=== PATIENT | female | born 1975 | race Caucasian/White ===

== ENCOUNTER 2018-02-23 13:24 | Inpatient (IN) | payer MEDICAID ==
[~2018-02-23] VITALS: Ht 154.9 cm; Wt 81.6 kg
--- NOTE | 2018-02-23 13:30 | NUR ---
Patient ambulated with assistance to bed 8.
[2018-02-23 13:35] VITALS: BP 144/84
[2018-02-23] MEDS ORDERED: NACL 0.9% 1,000 ML IV ONE (13:40)
[2018-02-23] MEDS ORDERED: MORPHINE SULFATE 4 MG/ML SYR IVP ONE (13:40)
[2018-02-23] MEDS ORDERED: METOCLOPRAMIDE 10 MG/2 ML INJ VIAL IVP ONE (13:45)
[2018-02-23] MEDS ORDERED: HYDROmorphone PFS 2 MG/ML SYR IVP ONE (13:55)
[2018-02-23 14:06] LABS: BASOPHILS % (AUTO) 0.5 % (0.0-2.0); EOSINOPHILS # (AUTO) 0.1 K/uL (0-0.4); HEMOGLOBIN 14.3 g/dL (12.0-16.0); LYMPHOCYTES # (AUTO) 2.5 K/uL (2.5-16.5); LYMPHOCYTES % (AUTO) 27.9 % (20.5-51.1); MEAN CORPUSCULAR HEMOGLOBIN 29 pg (27-31); MEAN CORPUSCULAR HGB CONC 33 g/dL (33-37); MEAN CORPUSCULAR VOLUME 87.2 fL (80-94); MONOCYTES # (AUTO) 0.5 K/uL (0.8-1.0); MONOCYTES % (AUTO) 6.1 % (1.7-9.3); NEUTROPHILS # (AUTO) 5.7 K/uL (1.8-7.7); NEUTROPHILS % (AUTO) 64.5 % (42.2-75.2); PLATELET COUNT (AUTO) 320 K/uL (140-450); RED BLOOD CELL COUNT(AUTO) 4.92 MIL/uL (4.20-5.40); RED CELL DISTRIBUTION WIDTH 13.3 % (11.6-13.7); WHITE BLOOD COUNT (AUTO) 8.9 K/uL (4.8-10.8)
--- NOTE | 2018-02-23 14:10 | NUR ---
PATIENT PRESENTS TO ED WITH THE CHIEF C/O ABDOMINAL PAIN . PT STATES PAIN STARTED SINCE YESTERDAY BECAME WORSE . PT HAS N/V. DENIES DIARRHEA. SKIN IS PINK/WARM/DRY; AAOX4 WITH EVEN AND STEADY GAIT. HR EVEN AND REGULAR; PT DENIES ANY FEVER, CP, SOB, OR COUGH AT THIS TIME. PATIENT STATES ABD PAIN OF 10/10 AT THIS TIME. ADMINISTERED MEDICATION ORDERED. VSS WNL. PATIENT POSITIONED FOR COMFORT; HOB ELEVATED; BEDRAILS UP X2; BED DOWN. ER MD MADE AWARE OF PT STATUS.
--- NOTE | 2018-02-23 14:14 | NUR ---
US TECH AT BEDSIDE.
[2018-02-23 14:18] LABS: ANION GAP 13.3 (8-16); CARBON DIOXIDE 25.1 mmol/L (21-32); CREATININE 0.9 mg/dL (0.6-1.3); POTASSIUM 3.4 mmol/L (3.5-5.1)
[2018-02-23 14:24] LABS: ALBUMIN 3.6 g/dL (3.4-5.0); TOTAL BILIRUBIN 0.3 mg/dL (0.0-1.0)
[2018-02-23 15:22] LABS: APPEARANCE,URINE SLIGHTLY HAZY (CLEAR); BILIRUBIN,URINE NEGATIVE (NEGATIVE); BLOOD, URINE 3+ (NEGATIVE); COLOR,URINE YELLOW (YELLOW); LEUKOCYTE ESTERASE ,URINE NEGATIVE (NEGATIVE); NITRITE, URINE NEGATIVE (NEGATIVE); PH,URINE 5.5 (5.0-9.0); UGLUCOSE NEGATIVE (NEGATIVE)
[2018-02-23 15:31] LABS: RBC,URINE 11-20 (MOD) /HPF (0-5); WBC,URINE 0-5 (RARE) /HPF (0-5)
--- NOTE | 2018-02-23 16:51 | NUR ---
PT APPEARS TO BE RESTING COMFORTABLY IN BED AT THIS TIME. NO ACUTE DISTRESS NOTED. NO CHANGE IN LOC. DENIES PAIN. AT BEDSIDE.
--- NOTE | 2018-02-23 16:58 | NUR ---
DR. COLLADO AT BEDSIDE EVALUATING PT.
[2018-02-23] MEDS ORDERED: PIPERACILLIN/TAZOBACTAM 3.375 GM in DEXTROSE 5% 50 ML IV ONE (17:20)
[2018-02-23] MEDS ORDERED: NACL 0.9% 1,000 ML IV SCH (17:34)
[2018-02-23] MEDS ORDERED: ONDANSETRON 4 MG/2 ML VIAL IVP PRN (17:35)
[2018-02-23] MEDS ORDERED: ACETAMINOPHEN 325 MG TAB PO PRN (17:35)
[2018-02-23] MEDS ORDERED: PIPERACILLIN/TAZOBACTAM 3.375 GM VIAL IV ONE (17:43)
[2018-02-23] MEDS ORDERED: KETOROLAC 30 MG/ML VIAL IVP ONE (18:15)
[2018-02-23] MEDS ORDERED: KETOROLAC 30 MG/ML VIAL ONE (18:20)
[2018-02-23 18:45] LABS: PROTHROMBIN TIME 10.6 secs (10.8-13.4)
[2018-02-23 18:50] VITALS: BP 115/50
--- NOTE | 2018-02-23 18:50 | NUR ---
PT BROUGHT IN FROM ER IN [facility], AMBULATES FROM HALLWAY TO 104B WITH STEADY GAIT, PT PLACED ON DIETITIAN CHIEF, REPORT RECIVED FROM [facility]IAL [facility], PT AWAKE ALERT, RESP EVEN UNLABORED, SKIN WARM DRY COLOR WNL, PT DENIES PAIN OR DISCOMFORT AT THIS TIME, PT APPEARS COMFORTABLE, ABD SOFT, PT ORIENTED TO ROOM AND FLOOR, CALL CAMERON WITHIN REACH SIDE RAILS UP, BED LOCKED IN LOW POSITION, WILL CONTINUE TO MONITOR AND REPORT TO ONCOMING SHIFT.
--- NOTE | 2018-02-23 18:52 | NUR ---
PT TRANSFERRED TO TELE ROOM 104B AT 1840 ON STABLE CONDITION SAFELY. VS WNL. REPORT GIVEN TO TELE NURSE FOR CONTINUITY OF CARE. HANDED ALL THE DOCUMENTS TO NURSE.
[2018-02-23 19:04] LABS: CHOL/HDL RATIO 7.3 (1-4.5); FREE T4 (FREE THYROXINE) 1.14 ng/dL (0.76-1.46); PHOSPHORUS 2.8 mg/dL (2.5-4.9); THYROID STIMULATING HORMONE 2.43 uIU/mL (0.34-3.74)
[2018-02-23 19:17] LABS: BARBITURATE, URINE NEG. ng/ml (NEG <=200); BENZODIAZEPINE, URINE NEG. ng/mL (NEG <=200); CANNABINOID, URINE NEG. ng/mL (NEG <=50); COCAINE, URINE NEG. ng/mL (NEG <=300); OPIATE, URINE POS. ng/mL (NEG <=2000); PHENCYCLIDINE SCREEN,URINE NEG. ng/mL (NEG <=25)
--- NOTE | 2018-02-23 19:25 | NUR ---
RECEIVED REPORT AT PT BEDSIDE FROM DAY SHIFT RN, FOR CONTINUITY OF CARE. PATIENT IS A/OX4 ON ROOM AIR, KYRGY[place] SPEAKING ONLY. ABLE TO MAKE NEEDS KNOWN, ABLE TO FOLLOW COMMANDS. PT SKIN IS INTACT. PT IS NPO. PATIENT HAS 20G IV TO RIGHT AC, ASYMPTOMATIC, INTACT, PATENT. RESPIRATIONS EVEN AND UNLABORED. UPDATED BOARD. VITAL SIGNS WITHIN NORMAL LIMITS. PT STABLE, NO SIGNS OF DISTRESS NOTED AT THIS TIME. BED IN LOWEST POSITION, BED ALARM ON. CALL LIGHT WITHIN REACH, WILL CONTINUE TO MONITOR.
[2018-02-23 20:00] VITALS: BP 143/47
[2018-02-23] MEDS: DOCUSATE SODIUM 100 MG GELCAP PO SCH (20:48)
--- NOTE | 2018-02-23 20:50 | NUR ---
ADMINISTERED SCHEDULED MEDICATION, PT TOLERATED WELL. NO PROBLEMS SWALLOWING NOTED. NO SIGNS OF DISTRESS NOTED AT THIS TIME. BED IN LOWEST POSITION, BED ALARM ON. CALL LIGHT WITHIN REACH, WILL CONTINUE TO MONITOR.
--- NOTE | 2018-02-23 21:55 | NUR ---
SPOKE TO RADIOLOGY ABOUT HIDA SCAN BECAUSE PT IS IN PAIN AND WANTS PAIN MEDICATION. THEY WILL NOT BE ABLE TO DO HIDA SCAN TONIGHT SO IT'S OK TO GIVE NARCOTICS FOR NOW. WILL BE UPDATED IN MORNING OF TIME THEY WILL DO HIDA SCAN.
[2018-02-23] MEDS: HYDROcodone/APAP 7.5/325 MG 1 TAB PO PRN (22:18)
--- NOTE | 2018-02-23 22:18 | NUR ---
ADMINISTERED PAIN MEDICATION, PT TOLERATED WELL. PT STABLE, NO SIGNS OF DISTRESS NOTED AT THIS TIME. BED IN LOWEST POSITION, BED ALARM ON. CALL LIGHT WITHIN REACH, WILL CONTINUE TO MONITOR.
[2018-02-24] VITALS: BP 107/56
--- NOTE | 2018-02-24 | NUR ---
VITAL SIGNS WITHIN NORMAL LIMITS. PT STABLE, NO SIGNS OF DISTRESS NOTED AT THIS TIME. BED IN LOWEST POSITION, BED ALARM ON. CALL LIGHT WITHIN REACH, WILL CONTINUE TO MONITOR.
[2018-02-24 04:00] VITALS: BP 113/67
--- NOTE | 2018-02-24 04:00 | NUR ---
PT DENIES PAIN. VITAL SIGNS WITHIN NORMAL LIMITS. PT STABLE, NO SIGNS OF DISTRESS NOTED AT THIS TIME. BED IN LOWEST POSITION, BED ALARM ON. CALL LIGHT WITHIN REACH, WILL CONTINUE TO MONITOR.
[2018-02-24 07:16] LABS: BASOPHILS % (AUTO) 0.4 % (0.0-2.0); EOSINOPHILS # (AUTO) 0.1 K/uL (0-0.4); EOSINOPHILS % (AUTO) 0.8 % (0.0-4.0); HEMATOCRIT 39.2 % (36-48); HEMOGLOBIN 12.9 g/dL (12.0-16.0); LYMPHOCYTES # (AUTO) 1.8 K/uL (2.5-16.5); LYMPHOCYTES % (AUTO) 22.6 % (20.5-51.1); MEAN CORPUSCULAR HEMOGLOBIN 29 pg (27-31); MEAN CORPUSCULAR HGB CONC 33 g/dL (33-37); MONOCYTES # (AUTO) 0.4 K/uL (0.8-1.0); MONOCYTES % (AUTO) 5.6 % (1.7-9.3); NEUTROPHILS # (AUTO) 5.6 K/uL (1.8-7.7); NEUTROPHILS % (AUTO) 70.6 % (42.2-75.2); PLATELET COUNT (AUTO) 294 K/uL (140-450); RED BLOOD CELL COUNT(AUTO) 4.46 MIL/uL (4.20-5.40); RED CELL DISTRIBUTION WIDTH 13.3 % (11.6-13.7); WHITE BLOOD COUNT (AUTO) 7.9 K/uL (4.8-10.8)
--- NOTE | 2018-02-24 07:37 | NUR ---
ENDORSED PT TO DAY SHIFT RN FOR CONTINUITY OF CARE, PT IN STABLE CONDITION.
--- NOTE | 2018-02-24 07:40 | NUR ---
RECEIVED PT FROM ALUM PLANT SUPERVISOR NURSE, AWAKE WITH ON THE BEDSIDE, WITH AN IV LINE AT RT AC G.20, NS RUNNING AT 50ML/HR. PLAN OF CARE DISCUSSED. PT IS ALERT, ORIENTEDX4, NO PAIN THIS TIME.CALL LIGHT WITHIN REACH AND SIDE RAILS ARE UP. WILL CONTINUE TO MONITOR.
--- NOTE | 2018-02-24 07:45 | NUR ---
PT IS AWAKE AND VITAL SIGNS TAKEN AND IS STABLE. NO SIGN OF DISTRESS NOTED. CALL LIGHT WITHIN REACH AND WILL CONTINUE TO MONITOR.
[2018-02-24 07:58] LABS: ANION GAP 18.2 (8-16); CARBON DIOXIDE 25.7 mmol/L (21-32); CREATININE 0.7 mg/dL (0.6-1.3); POTASSIUM 3.9 mmol/L (3.5-5.1)
[2018-02-24 08:00] VITALS: BP 113/52
[2018-02-24 08:31] LABS: MAGNESIUM 2.2 mg/dL (1.8-2.4); PHOSPHORUS 2.8 mg/dL (2.5-4.9)
--- NOTE | 2018-02-24 10:24 | NUR ---
PATIENT HAS BEEN SCREENED AND CATEGORIZED MODERATE NUTRITION RISK. PATIENT WILL BE SEEN WITHIN 3-5 DAYS OF ADMISSION. 02/26/18 02/28/[address]
[2018-02-24] MEDS: DEXT 5% /NACL 0.9% 1,000 ML IV SCH ×2 (10:30→18:22)
--- NOTE | 2018-02-24 10:30 | NUR ---
PT IS AWAKE AND NS WAS DISCONTINUED. PT WAS STARTED ON IV FLUID OF DEXTROSE 5%- NACL 0.9% RUNNING AT 90ML/HR. MEDICATIONS GIVEN AND PT TOLERATED IT. NMO SIGN OF DISTRESS NOTED. WILL CONTINUE TO MONITOR.
[2018-02-24] MEDS: DOCUSATE SODIUM 100 MG GELCAP PO SCH ×2 (10:53→21:01)
[2018-02-24] MEDS: PANTOPRAZOLE 40 MG INJ VIAL IVP SCH (10:53)
[2018-02-24 12:00] VITALS: BP 114/63
--- NOTE | 2018-02-24 12:17 | NUR ---
ASSISTED PT TO THE BATHROOM AND BACK TO BED, IV WAS CHECKED. NO SIGN OF DISTRESS NOTED. CALL LIGHT WITHIN REACH AND WILL CONTINUE TO MONITOR.
--- NOTE | 2018-02-24 14:00 | NUR ---
PT WENT FOR A HIDRA SCAN AND CT OF THE CHEST WITH IV CONTRAST. NO SIGN OF DISTRESS NOTED. PT IS STABLE.
[2018-02-24 16:00] VITALS: BP 126/68
--- NOTE | 2018-02-24 16:20 | NUR ---
PT CAME BACK TO THE ROOM FROM THE RADIOLOGY FROM THE CT AND HIDRA SCAN PRECEDURES. NO SIGN OF DISTRESS NOTED. WILL MONITOR.
--- NOTE | 2018-02-24 19:30 | NUR ---
ENDORSED PT TO NEWSWRITER FOR CONTINUITY OF CARE. PT IS STABLE WITH ON THE BEDSIDE.
--- NOTE | 2018-02-24 19:31 | NUR ---
REPORT RECEIVED FROM AM NURSE. PT IN STABLE CONDITION. INTRODUCED MYSELF TO PT. AAOX4. EYES PERRL 3MM. LUNGS CLEAR BILATERALLY. HEART SOUNDS S1 S2 NORMAL. BOWEL SOUNDS ACTIVE X4 QUADRANTS. CAP REFILL < 3S. SKIN INTACT, DRY, AND WARM. IV LEAKING. WILL PLACE NEW IV. VS STABLE. PT NOT IN ACUTE DISTRESS. BED LOCKED IN LOW POSITION. CALL CAMERON WITHIN REACH. WILL CONTINUE TO MONITOR.
[2018-02-24 20:00] VITALS: BP 138/79
--- NOTE | 2018-02-24 20:40 | NUR ---
PM MEDS GIVEN. PT TOLERATED WELL. WILL CONTINUE TO MONITOR.
--- NOTE | 2018-02-24 22:26 | NUR ---
CALLED DR NAVARRO WITH RESULTS OF NM HIDA SCAN. RESULTS ARE "THE COMMON BILE DUCT IS VISUALIZED. THERE IS NO EVIDENCE OF OBSTRUCTION OF THE COMMON DUCT. NORMAL SMALL BOWEL ACTIVITY IS SEEN." "IMPRESSION: NONVISUALIZATION OF THE GALLBLADDER UP TO 60 MINUTES POST INJECTION. HOWEVER, THERE IS FAINT RADIONUCLIDE ACTIVITY IN THE ANTICIPATED LOCATION OF THE GALLBLADDER AT 120 MINUTES POST INJECTION SUGGESTING CHRONIC CHOLECYSTITIS." DR NAVARRO STATES THAT PATIENT DOES NOT NEED TO BE NPO. THE PT IS TO BE DC AND MAKE AN APPOINTMENT TO BE SEEN BY DR NAVARRO AT A LATER DATE.
[2018-02-25] VITALS: BP 121/68
--- NOTE | 2018-02-25 01:00 | NUR ---
PT ASLEEP IN BED. VISUALIZATION OF CHEST EXPANSION. WILL CONTINUE TO MONITOR.
--- NOTE | 2018-02-25 03:00 | NUR ---
PT STILL ASLEEP IN BED. PT NOT IN ANY ACUTE DISTRESS. WILL CONTINUE TO MONITOR.
[2018-02-25 04:00] VITALS: BP 132/70
[2018-02-25] MEDS: DEXT 5% /NACL 0.9% 1,000 ML IV SCH ×2 (05:29→20:48)
--- NOTE | 2018-02-25 05:30 | NUR ---
PT ASLEEP BUT AROUSABLE. NOT IN ANY ACUTE DISTRESS. WILL CONTINUE TO MONITOR.
[2018-02-25 06:34] LABS: BASOPHILS % (AUTO) 0.4 % (0.0-2.0); EOSINOPHILS # (AUTO) 0.1 K/uL (0-0.4); EOSINOPHILS % (AUTO) 1.1 % (0.0-4.0); HEMATOCRIT 41.4 % (36-48); HEMOGLOBIN 13.7 g/dL (12.0-16.0); LYMPHOCYTES # (AUTO) 1.6 K/uL (2.5-16.5); LYMPHOCYTES % (AUTO) 22.3 % (20.5-51.1); MEAN CORPUSCULAR HEMOGLOBIN 29 pg (27-31); MEAN CORPUSCULAR HGB CONC 33 g/dL (33-37); MONOCYTES # (AUTO) 0.4 K/uL (0.8-1.0); MONOCYTES % (AUTO) 5.8 % (1.7-9.3); NEUTROPHILS % (AUTO) 70.4 % (42.2-75.2); PLATELET COUNT (AUTO) 302 K/uL (140-450); RED CELL DISTRIBUTION WIDTH 13.2 % (11.6-13.7); WHITE BLOOD COUNT (AUTO) 7.1 K/uL (4.8-10.8)
[2018-02-25 06:43] LABS: ANION GAP 9.5 (8-16); CARBON DIOXIDE 27.3 mmol/L (21-32); CREATININE 0.8 mg/dL (0.6-1.3); POTASSIUM 3.8 mmol/L (3.5-5.1)
[2018-02-25 06:51] LABS: PHOSPHORUS 2.6 mg/dL (2.5-4.9)
--- NOTE | 2018-02-25 07:09 | NUR ---
REPORT GIVEN TO AM NURSE. PT IN STABLE CONDITION.
--- NOTE | 2018-02-25 07:10 | NUR ---
RECEIVED REPORT FROM LAMP DECORATOR NURSE, AMEYA, PT IS ASLEEP LYING ON THE BED WITH AN IV LINE ON RT AC G. 20, NOT HOOKED UP WITH THE IVF OF DEXTROSE5%-NACL 0.9%. SIDE RAILS ARE UP AND CALL LIGHT WITHIN REACH, RESPIRATION EVEN AND NO SIGN OF DISTRESS NOTED. WILL CONTINUE TO MONITOR.
[2018-02-25 07:12] LABS: MAGNESIUM 2.4 mg/dL (1.8-2.4)
--- NOTE | 2018-02-25 07:38 | NUR ---
PT IS AWAKE AND LYING ON THE BED, CARE PLAN DISCUSSED AND PT VERBALIZED UNDERSTANDING. VITAL SIGNS TAKEN AND IS STABLE. WILL CONTINUE TO MONITOR.
[2018-02-25 08:00] VITALS: BP 119/55
[2018-02-25] MEDS: ATORVASTATIN 20 MG TAB PO SCH (10:15)
[2018-02-25] MEDS: DOCUSATE SODIUM 100 MG GELCAP PO SCH ×2 (10:15→20:49)
[2018-02-25] MEDS: PANTOPRAZOLE 40 MG INJ VIAL IVP SCH (10:15)
[2018-02-25] MEDS: HYDROcodone/APAP 7.5/325 MG 1 TAB PO PRN (10:15)
[2018-02-25 12:00] VITALS: BP 126/56
--- NOTE | 2018-02-25 13:04 | NUR ---
ACKNOWLEDGED A BONE SCAN ORDER FROM DR. MCGINNIS FOR THE PT.
[2018-02-25 16:00] VITALS: BP 120/60
--- NOTE | 2018-02-25 16:20 | NUR ---
PT IS AWAKE WITH ON THE BEDSIDE, VITAL SIGNS TAKEN AND IS STABLE. NO SIGN OFF DISTRESS NOTED ON THE PT. WILL MONITOR.
--- NOTE | 2018-02-25 17:17 | NUR ---
ACKNOWLEDGED AN ORDER FOR THE PT ELIA OBTAIN CONSENT FOR A LAPAROSCOPIC CHOLECYSTECTOMY ELIA WITH DR. BEBO WOLFE. WILL FACILITATE CONSENT SIGNING.
--- NOTE | 2018-02-25 19:35 | NUR ---
ENDORSED PT TO TUMBLER DYEING MACHINE OPERATOR NURSE, ROBERT FOR CONTINUITY OF CARE, PT IS AWAKE AND SEATED ON THE BED WITH FAMILY ON BEDSIDE AND IS STABLE AT THIS TIME.
--- NOTE | 2018-02-25 19:37 | NUR ---
RECEIVED PT IN STABLE CONDITION FROM AM NURSE. PT ON MED SURG UNIT. AWAKE, ALERT AND ORIENTED X4, SOUTH AFRICAN SPEAKING. WITH FAMILY AT BEDSIDE WHO SPEAK SWEDISH. PT AWARE OF THE SURGERY TO BE DONE TOMORROW. INSTRUCTED PT ABOUT NPO STATUS AFTER MN. VERBALIZED UNDERSTANDING. BED ON LOWEST POSITION. CALL LIGHT PLACED WITHIN EASY REACH. WILL CONTINUE TO MONITOR.
--- NOTE | 2018-02-25 21:50 | NUR ---
AWAKE, STILL WITH FAMILY AT BEDSIDE. NO C/O ANY PAIN NOTED. WILL CONITNUE TO MONITOR.
[2018-02-25 23:30] VITALS: BP 124/63
--- NOTE | 2018-02-25 23:30 | NUR ---
PT AWAKE. NO C/O ANY DISCOMFORT NOR PAIN NOTED. INSTRUCTED AGAIN ABOUT NPO STATUS AFTER MN. VERBALIZED UNDERSTANDING . WILL CONTINUE TO MONITOR.
[2018-02-26] VITALS (8 sets, daily range): BP systolic 114–126; BP diastolic 55–69
--- NOTE | 2018-02-26 01:30 | NUR ---
ASSISTED TO BATHROOM AGAIN . PT ASSISTED BACK TO BED. NO C/O PAIN NOTED. WILL CONTINUE TO MONITOR.
--- NOTE | 2018-02-26 02:45 | NUR ---
MADE ROUNDS. NO C/O ANY DISCOMFORT NOR PAIN NOTED.
[2018-02-26] MEDS: DEXT 5% /NACL 0.9% 1,000 ML IV SCH ×2 (03:29→21:37)
--- NOTE | 2018-02-26 04:45 | NUR ---
MADE ROUNDS. PT UP TO BATHROOM AND VOIDED. NO C/O PAIN NOTED.
--- NOTE | 2018-02-26 06:20 | NUR ---
PT NO C/O PAIN DURING THE NIGHT. KEPT NPO SINCE MIDNIGHT FOR SURGERY THIS AM.
[2018-02-26 06:27] LABS: BASOPHILS % (AUTO) 0.7 % (0.0-2.0); EOSINOPHILS # (AUTO) 0.1 K/uL (0-0.4); EOSINOPHILS % (AUTO) 1.4 % (0.0-4.0); HEMATOCRIT 40.8 % (36-48); HEMOGLOBIN 13.7 g/dL (12.0-16.0); LYMPHOCYTES # (AUTO) 1.8 K/uL (2.5-16.5); LYMPHOCYTES % (AUTO) 27.4 % (20.5-51.1); MEAN CORPUSCULAR HEMOGLOBIN 29 pg (27-31); MEAN CORPUSCULAR HGB CONC 34 g/dL (33-37); MEAN CORPUSCULAR VOLUME 87.1 fL (80-94); MONOCYTES # (AUTO) 0.4 K/uL (0.8-1.0); MONOCYTES % (AUTO) 6.6 % (1.7-9.3); NEUTROPHILS # (AUTO) 4.2 K/uL (1.8-7.7); NEUTROPHILS % (AUTO) 63.9 % (42.2-75.2); PLATELET COUNT (AUTO) 299 K/uL (140-450); RED BLOOD CELL COUNT(AUTO) 4.69 MIL/uL (4.20-5.40); WHITE BLOOD COUNT (AUTO) 6.5 K/uL (4.8-10.8)
[2018-02-26 06:54] LABS: ANION GAP 13.4 (8-16); CARBON DIOXIDE 24.7 mmol/L (21-32); CREATININE 0.7 mg/dL (0.6-1.3); POTASSIUM 3.1 mmol/L (3.5-5.1)
[2018-02-26 06:55] LABS: MAGNESIUM 2.1 mg/dL (1.8-2.4); PHOSPHORUS 2.7 mg/dL (2.5-4.9)
--- NOTE | 2018-02-26 07:12 | NUR ---
ENDORSED PT IN STABLE CONDITION TO AM NURSE.
--- NOTE | 2018-02-26 07:13 | NUR ---
RECEIVED REPORT FROM WEIGHT ANALYST RN. PATIENT IS AAOX4, NO SIGNS AND SYMPTOMS OF ACUTE DISTRESS NOTED AT THIS TIME. HAS IV TO THE RIGHT AC 20G, INFUSING D5NS AT 90 ML/HR. SITE IS CLEAN, DRY, PATENT AND INTACT. DISCUSSED PLAN OF CARE WITH PATIENT AND SHE VERBALIZED UNDERSTANDING. BED IN LOWEST POSITION, SIDE RAILS UP X3, CALL LIGHT WITHIN REACH, WILL CONTINUE TO MONITOR.
--- NOTE | 2018-02-26 08:17 | NUR ---
SPOKE WITH DR BARRIGA IN REGARDS TO HIS ORDER FOR THE BONE SCAN. NUCLEAR MED IS HERE TO INJECT DYE BUT PATIENT WILL BE GOING TO SURGERY AROUND 1040 THIS MORNING. INFORMED HIM OF THIS AND ASKED IF IT WAS OKAY TO RESCHEDULE THE SCAN. STATED IT WAS OKAY.
[2018-02-26] MEDS: ATORVASTATIN 20 MG TAB PO SCH (09:00)
[2018-02-26] MEDS: DOCUSATE SODIUM 100 MG GELCAP PO SCH ×2 (09:00→21:33)
[2018-02-26] MEDS ORDERED: MEPERIDINE 50 MG/ML SYR ONE (10:30)
[2018-02-26] MEDS ORDERED: MIDAZOLAM 2 MG/2 ML VIAL ONE (10:30)
[2018-02-26] MEDS ORDERED: fentaNYL 0.05 MG/ML VIAL ONE (10:30)
[2018-02-26] MEDS: PANTOPRAZOLE 40 MG INJ VIAL IVP SCH (10:31)
[2018-02-26] MEDS ORDERED: KETOROLAC 60 MG/2 ML VIAL IM ONE (11:00)
[2018-02-26] MEDS ORDERED: ONDANSETRON 4 MG/2 ML VIAL ONE (11:00)
[2018-02-26] MEDS ORDERED: DESFLURANE 240 ML BTL INH ONE (11:00)
[2018-02-26] MEDS ORDERED: PROPOFOL 200 MG/20 ML VIAL IV ONE (11:00)
[2018-02-26] MEDS ORDERED: ROCURONIUM 50 MG/5 ML VIAL IV ONE (11:00)
[2018-02-26] MEDS ORDERED: DEXAMETHASONE 4 MG/ML VIAL ONE (11:00)
[2018-02-26] MEDS ORDERED: NEOSTIGMINE 1:1000 10 MG/10 ML VIAL ONE (11:00)
[2018-02-26] MEDS ORDERED: SUCCINYLCHOLINE CHLORIDE 200 MG/10 ML VIAL IVP ONE (11:00)
[2018-02-26] MEDS ORDERED: GLYCOPYRROLATE 0.2 MG/ML VIAL ONE (11:00)
[2018-02-26] MEDS ORDERED: BUPIVACAINE-MPF 0.25% 30 ML VIAL INJ ONE (11:08)
--- NOTE | 2018-02-26 11:11 | NUR ---
PATIENT WAS TAKEN TO OR.
[2018-02-26] MEDS ORDERED: ceFAZolin 1,000 MG VIAL ONE (11:13)
[2018-02-26] MEDS ORDERED: MIDAZOLAM 2 MG/2 ML VIAL IVP ONE (11:35)
[2018-02-26] MEDS ORDERED: METOCLOPRAMIDE 10 MG/2 ML INJ VIAL IVP PRN (11:35)
[2018-02-26] MEDS ORDERED: MEPERIDINE 50 MG/ML SYR IVP PRN ×2 (11:35)
[2018-02-26] MEDS ORDERED: ONDANSETRON 4 MG/2 ML VIAL IV PRN (12:25)
[2018-02-26] MEDS ORDERED: HYDROmorphone 1 MG/ML AMP IVP PRN (12:25)
[2018-02-26] MEDS ORDERED: MORPHINE SULFATE 2 MG/ML SYR IVP PRN (12:25)
[2018-02-26] MEDS ORDERED: MORPHINE SULFATE 4 MG/ML SYR IV PRN (12:25)
--- NOTE | 2018-02-26 13:10 | NUR ---
PATIENT BROUGHT BACK TO ROOM. HAS NO SIGNS AND SYMPTOMS OF ACUTE DISTRESS NOTED AT THIS TIME. DENIES PAIN. HAS FOUR INCISION SITES WITH BANDAIDS. CLEAN AND DRY. WILL CONTINUE TO MONITOR.
--- NOTE | 2018-02-26 14:10 | NUR ---
RESTING, HAS NO SIGNS AND SYMPTOMS OF ACUTE DISTRESS NOTED AT THIS TIME. DENIES ANY PAIN AT THIS TIME.
--- NOTE | 2018-02-26 15:50 | NUR ---
PATIENT STILL RESTING. DENIES ANY PAIN. WILL CONTINUE TO MONITOR.
--- NOTE | 2018-02-26 17:01 | NUR ---
NO SIGNS AND SYMPTOMS OF ACUTE DISTRESS NOTED AT THIS TIME. PATIENT REQUESTED SOME JELL-O.
[2018-02-26] MEDS ORDERED: POTASSIUM CHLORIDE 40 MEQ, LIDOCAINE 1% 25 MG in NACL 0.9% 250 ML IV ONE (18:25)
--- NOTE | 2018-02-26 19:13 | NUR ---
ENDORSED PATIENT TO HOLISTIC PULSER RN FOR CONTINUITY OF CARE. PATIENT IN STABLE CONDITION.
--- NOTE | 2018-02-26 19:20 | NUR ---
RECEIVE DPT IN STABLE CONDITION FROM AM NURSE. AWAKE,ALERT AND ORIENTED X4. BENGALI SPEAKING. S/P LAP ERLIN WITH X4 INCISIONS WITH SMALL BANDAIDS ON ABDOMEN. NO BLEEDING NOR REDNESS NOTED. SHE SAID SHE VOIDED ONCE AFTER SURGERY . ENCOURAGED TO CALL FOR ASSIST IF NEED TO GO BATHROOM. IVF INFUSING WELL ON THE RT AC#20. BED ON LOW POSITION. CALL LIGHT PLACED WITHIN REACH. WILL CONTINUE TO MONITOR.
[2018-02-26] MEDS: HYDROcodone/APAP 5/325 MG 1 TAB TAB PO PRN (19:37)
--- NOTE | 2018-02-26 21:38 | NUR ---
ASSISTED UP TO THE BATHROOM WITH STANDBY ASSIST. VOIDED WELL.
--- NOTE | 2018-02-26 23:00 | NUR ---
PT IS ASLEEP. NO S/S OF ANY DISCOMFORT NOR APIN NOTED.
[2018-02-27 00:44] VITALS: BP 121/60
[2018-02-27] MEDS: HYDROcodone/APAP 5/325 MG 1 TAB TAB PO PRN ×3 (00:50→17:42)
--- NOTE | 2018-02-27 01:50 | NUR ---
PT ASLEEP. NO S/S OF ANY DISCOMFORT AT THIS TIME. WILL CONTINUE TO MONITOR.
--- NOTE | 2018-02-27 03:30 | NUR ---
ROSALIA EDGAR. PT IS ASLEEP. NO S/S OF ANY DISCOMFORT NOR PAIN NOTED.
[2018-02-27 04:30] VITALS: BP 133/61
--- NOTE | 2018-02-27 05:00 | NUR ---
MADE ROUNDS. PT IS ASLEEP. NO S/S OF ANY DISCOMFORT.
--- NOTE | 2018-02-27 06:25 | NUR ---
MADE ROUNDS. ASKED PT IF NEED PAIN MED . SHE SAID NO. INSTRUCTED PT TO AMBULATE TODAY. VERBALIZED UNDERSTANDING.
[2018-02-27 06:49] LABS: BASOPHILS % (AUTO) 0.5 % (0.0-2.0); EOSINOPHILS # (AUTO) 0.1 K/uL (0-0.4); EOSINOPHILS % (AUTO) 0.7 % (0.0-4.0); HEMATOCRIT 38.1 % (36-48); HEMOGLOBIN 12.6 g/dL (12.0-16.0); LYMPHOCYTES # (AUTO) 2.1 K/uL (2.5-16.5); LYMPHOCYTES % (AUTO) 21.8 % (20.5-51.1); MEAN CORPUSCULAR HEMOGLOBIN 29 pg (27-31); MEAN CORPUSCULAR HGB CONC 33 g/dL (33-37); MEAN CORPUSCULAR VOLUME 88.1 fL (80-94); MONOCYTES # (AUTO) 0.7 K/uL (0.8-1.0); MONOCYTES % (AUTO) 7.1 % (1.7-9.3); NEUTROPHILS # (AUTO) 6.7 K/uL (1.8-7.7); NEUTROPHILS % (AUTO) 69.9 % (42.2-75.2); PLATELET COUNT (AUTO) 283 K/uL (140-450); RED BLOOD CELL COUNT(AUTO) 4.32 MIL/uL (4.20-5.40); RED CELL DISTRIBUTION WIDTH 13.1 % (11.6-13.7); WHITE BLOOD COUNT (AUTO) 9.7 K/uL (4.8-10.8)
--- NOTE | 2018-02-27 07:20 | NUR ---
RECEIVED PT FROM CROSSING SUPERVISOR NURSE AT BEDSIDE. PT HAS R HAND IV 22G. SITE IS CLEAN, DRY AND PATENT. PT IS A/O X4. BED IS IN LOWEST POSITION WITH SIDE RAILS UP X2. CALL LIGHT IS WITHIN REACH. NO SIGNS OF DISTRESS. WILL CONTINUE TO MONITOR PT.
--- NOTE | 2018-02-27 07:20 | NUR ---
ENDORSED PT IN STABLE CONDITION TO AM NURSE. FOR CONTINUITY OF CARE.
[2018-02-27 07:23] LABS: ANION GAP 12.3 (8-16); CARBON DIOXIDE 25.5 mmol/L (21-32); CREATININE 0.8 mg/dL (0.6-1.3); POTASSIUM 3.8 mmol/L (3.5-5.1)
[2018-02-27 07:39] LABS: MAGNESIUM 1.9 mg/dL (1.8-2.4); PHOSPHORUS 2.2 mg/dL (2.5-4.9)
[2018-02-27] MEDS: PANTOPRAZOLE 40 MG INJ VIAL IVP SCH (10:19)
[2018-02-27] MEDS: DOCUSATE SODIUM 100 MG GELCAP PO SCH ×2 (10:20→20:33)
[2018-02-27] MEDS: ATORVASTATIN 20 MG TAB PO SCH (10:20)
--- NOTE | 2018-02-27 10:30 | NUR ---
ADMINISTERED MORNING MEDS TO PT. PT TOLERATED WELL. FAMILY IS AT BEDSIDE. WILL CONTINUE TO MONITOR.
--- NOTE | 2018-02-27 11:15 | NUR ---
PT IS UP AND AMBULATING HALLWAY WITH FAMILY MEMBER. NO SIGNS OF DISTRESS.
--- NOTE | 2018-02-27 12:55 | NUR ---
PATIENT BEING TAKEN TO RADIOLOGY DEPARTMENT FOR CT.
[2018-02-27] MEDS: DEXT 5% /NACL 0.9% 1,000 ML IV SCH ×2 (13:22→19:50)
--- NOTE | 2018-02-27 13:59 | NUR ---
PATIENT BACK FROM RADIOLOGY. IN STABLE CONDITION.
[2018-02-27 16:00] VITALS: BP 115/56
--- NOTE | 2018-02-27 16:30 | NUR ---
PT IS UP AND AMBULATING THE HALLWAY WITH FAMILY MEMBER. NO SIGNS OF DISTRESS. WILL CONTINUE TO MONITOR.
--- NOTE | 2018-02-27 19:18 | NUR ---
ENDORSED PT TO AUTOMATION CONTROLS EXPERT NURSE FOR CONTINUITY OF CARE. PT IS STABLE.
--- NOTE | 2018-02-27 19:19 | NUR ---
RECEIVED REPORT AT PT BEDSIDE FROM DAY SHIFT RN, FOR CONTINUITY OF CARE. PATIENT IS A/OX4 ON ROOM AIR, ENGLISH SPEAKING ONLY. ABLE TO MAKE NEEDS KNOWN, ABLE TO FOLLOW COMMANDS. PT SKIN IS INTACT. PT IS NPO. PATIENT HAS 22G IV TO RIGHT WRIST. RESPIRATIONS EVEN AND UNLABORED. UPDATED BOARD. VITAL SIGNS WITHIN NORMAL LIMITS. PT STABLE, NO SIGNS OF DISTRESS NOTED AT THIS TIME. BED IN LOWEST POSITION, BED ALARM ON. CALL LIGHT WITHIN REACH, WILL CONTINUE TO MONITOR. Addendum: 02/28/18 at 0500 by Sejal Mccollum RN DISREGARD.
--- NOTE | 2018-02-27 19:20 | NUR ---
RECEIVED REPORT AT PT BEDSIDE FROM DAY SHIFT RN, FOR CONTINUITY OF CARE. PATIENT IS A/OX4 ON ROOM AIR, LUX[place]OURG[place] SPEAKING ONLY. ABLE TO MAKE NEEDS KNOWN, ABLE TO FOLLOW COMMANDS. PT IS S/P ADRIANA KERN AND HAS 4 ABDOMINAL INCISIONS. PATIENT HAS 22G IV TO RIGHT WRIST. RESPIRATIONS EVEN AND UNLABORED. UPDATED BOARD. VITAL SIGNS WITHIN NORMAL LIMITS. PT STABLE, NO SIGNS OF DISTRESS NOTED AT THIS TIME. BED IN LOWEST POSITION, BED ALARM ON. CALL LIGHT WITHIN REACH, WILL CONTINUE TO MONITOR.
[2018-02-27] MEDS ORDERED: SODIUM PHOS / POTASSIUM PHOS 1 PKT PDR PO SCH (20:00)
--- NOTE | 2018-02-27 20:00 | NUR ---
CHANGED PT IV TO RIGHT FOREARM, 22G. PT TOLERATED WELL.
--- NOTE | 2018-02-27 20:45 | NUR ---
ADMINISTERED SCHEDULED MEDICATIONS, PT TOLERATED WELL. PT STABLE, NO SIGNS OF DISTRESS NOTED AT THIS TIME. BED IN LOWEST POSITION, BED ALARM ON. CALL LIGHT WITHIN REACH, WILL CONTINUE TO MONITOR.
--- NOTE | 2018-02-27 23:50 | NUR ---
ADMINISTERED PAIN MEDICATION FOR 6/10 PAIN. PT TOLERATED WELL.
[2018-02-28] VITALS: BP 121/78
[2018-02-28] MEDS: DEXT 5% /NACL 0.9% 1,000 ML IV SCH ×2 (00:11→11:18)
--- NOTE | 2018-02-28 00:50 | NUR ---
PT STATES PAIN HAS NOT CHANGED, IT IS STILL 6/10. PT WANTS TO WAIT BEFORE TRYING SOMETHING ELSE.
[2018-02-28] MEDS: HYDROcodone/APAP 5/325 MG 1 TAB TAB PO PRN (01:45)
--- NOTE | 2018-02-28 01:45 | NUR ---
PT REQUESTED NORCO BECAUSE SHE STATES NORCO WORKS BETTER FOR HER 6/10 PAIN. ADMINISTERED NORCO, PT TOLERATED WELL. NO SIGNS OF DISTRESS NOTED AT THIS TIME. BED IN LOWEST POSITION, BED ALARM ON. CALL LIGHT WITHIN REACH, WILL CONTINUE TO MONITOR.
--- NOTE | 2018-02-28 04:38 | NUR ---
PT STATES SHES FEELING NAUSEOUS BUT DOES NOT WANT MEDICATION. HELPED PT TO GET UP, PT RINSED MOUTH AND STATES SHES FEELING MUCH BETTER.
--- NOTE | 2018-02-28 06:21 | NUR ---
PT STABLE, NO SIGNS OF DISTRESS NOTED AT THIS TIME. BED IN LOWEST POSITION, BED ALARM ON. CALL LIGHT WITHIN REACH, WILL CONTINUE TO MONITOR.
[2018-02-28 06:58] LABS: BASOPHILS % (AUTO) 0.5 % (0.0-2.0); EOSINOPHILS # (AUTO) 0.1 K/uL (0-0.4); EOSINOPHILS % (AUTO) 0.7 % (0.0-4.0); HEMATOCRIT 39.1 % (36-48); LYMPHOCYTES # (AUTO) 1.8 K/uL (2.5-16.5); LYMPHOCYTES % (AUTO) 18.7 % (20.5-51.1); MEAN CORPUSCULAR HEMOGLOBIN 29 pg (27-31); MEAN CORPUSCULAR HGB CONC 33 g/dL (33-37); MONOCYTES # (AUTO) 0.7 K/uL (0.8-1.0); MONOCYTES % (AUTO) 7.1 % (1.7-9.3); PLATELET COUNT (AUTO) 271 K/uL (140-450); RED BLOOD CELL COUNT(AUTO) 4.44 MIL/uL (4.20-5.40); RED CELL DISTRIBUTION WIDTH 13.2 % (11.6-13.7); WHITE BLOOD COUNT (AUTO) 9.6 K/uL (4.8-10.8)
[2018-02-28 07:21] LABS: MAGNESIUM 1.9 mg/dL (1.8-2.4)
[2018-02-28 07:26] LABS: ANION GAP 11.6 (8-16); CARBON DIOXIDE 27.3 mmol/L (21-32); CREATININE 0.8 mg/dL (0.6-1.3); POTASSIUM 3.9 mmol/L (3.5-5.1)
--- NOTE | 2018-02-28 07:30 | NUR ---
ENDORSED PT TO DAY SHIFT RN FOR CONTINUITY OF CARE. PT IN STABLE CONDITION.
--- NOTE | 2018-02-28 07:31 | NUR ---
PATIENT LYING DOWN IN BED SLEEPING, AROUSABLE BY VOICE. NO DISTRESS NOTED. DENIES ANY PAIN AT THIS TIME. RESPIRATIONS EVEN, UNLABORED, ON ROOM AIR. AAOX4, CALM, COOPERATIVE, SKIN COLOR APPROPRIATE TO ETHNICITY, WARM TO TOUCH. HAS 4 LAPARASCOPIC WOUNDS ON ABDOMEN S/P LAP ERLIN ON 02/26/18, ABD WOUNDS DRESSING IS DRY AND INTACT, NO BLEEDING NOTED. LUNGS CTA ON ALL LOBES. ABLE TO AMBULATE TO BATHROOM AND BACK TO BED WITH ASSISTANCE DUE TO S/P LAP ERLIN. IV SITE INTACT, PATENT, AND INFUSING IVF PER MD ORDERS. REVIEWED PLAN OF CARE WITH PATIENT. PATIENT VERBALIZED UNDERSTANDING. SAFETY MEASURES IN PLACE, CALL LIGHT WITHIN REACH. WILL CONTINUE TO MONITOR.
[2018-02-28 08:00] VITALS: BP 120/63
[2018-02-28] MEDS: PANTOPRAZOLE 40 MG INJ VIAL IVP SCH (09:46)
[2018-02-28] MEDS: DOCUSATE SODIUM 100 MG GELCAP PO SCH (09:47)
[2018-02-28] MEDS: ATORVASTATIN 20 MG TAB PO SCH (09:47)
--- NOTE | 2018-02-28 09:55 | NUR ---
PATIENT LYING IN BED COMFORTABLY. NO DISTRESS NOTED. DENIES ANY PAIN. REPORTS HAVING PASS GAS YESTERDAY NIGHT. SCHEDULED MEDICATIONS DUE GIVEN. SAFETY MEASURES IN PLACE, CALL LIGHT WITHIN REACH. WILL CONTINUE OT MONITOR.
[2018-02-28] MEDS ORDERED: ACET-8386 PO (11:01)
[2018-02-28] MEDS ORDERED: DOCU-299 PO (11:01)
--- NOTE | 2018-02-28 11:02 | NUR ---
PATIENT SITTING IN BED COMFORTABLY. NO DISTRESS NOTED. DENIES ANY PAIN. NO BM YET, BUT HAS HAD PASS GAS. SAFETY MEASURES IN PLACE, CALL LIGHT WITHIN REACH. WILL CONTINUE TO MONITOR.
--- NOTE | 2018-02-28 13:00 | NUR ---
PROVIDED DISCHARGE INSTRUCTIONS TO PATIENT/FAMILY MEMBERS AT BEDSIDE IN [place]. [employer] OPERATOR [employer] OFFERED TO PATIENT, HOWEVER, PATIENT PREFERRED FAMILY MEMBERS TO TRANSLATE AT BEDSIDE. FOLLOW-UP VISIT WITH DR. [facility], NEW/CHANGED MEDICATION REGIMEN, WOUND CARE MANAGEMENT, AND DIET REGIMEN PROVIDED TO PATIENT/FAMILY. MEDICATION PRESCRIPTIONS GIVEN TO PATIENT/FAMILY. ANSWERED ALL OF PATIENT/FAMILY MEMBERS QUESTIONS REGARDING DISCHARGE. PATIENT/FAMILY VERBALIZED UNDERSTANDING. IV SITE REMOVED WITH MINIMAL BLOOD AND LUMEN COMPLETELY INTACT. ID BANDS REMOVED. PATIENT TO GET DRESSED AND THEN IS READY TO GO HOME WITH FAMILY MEMBERS AT BEDSIDE. WILL CONTINUE TO MONITOR.
--- NOTE | 2018-02-28 13:15 | NUR ---
PATIENT ALL DRESSED UP AND READY TO GO HOME. ESCORTED PATIENT DOWN TO LOBBY VIA WHEELCHAIR. PATIENT ABLE TO GET FROM WHEELCHAIR INTO PRIVATE VEHICLE. PATIENT DISCHARGED AT THIS TIME TO HOME VIA PRIVATE VEHICLE IN STABLE CONDITION.
== END 2018-02-28 13:15 | disposition home or self-care (01) | DRG 263 ==
LOC: MED 13:24 → MTU 17:39 → MMU 02-24 14:14
PROVIDERS: ADMIT General Practice; ATTEND General Practice
PROC: 0FT44ZZ Resection of Gallbladder, Percutaneous Endoscopic Approach (ICD-10-PCS; principal; 2018-02-26 10:40)
DX: K80.12 Calculus of gallbladder with acute and chronic cholecystitis without obstruction (principal); E78.5 Hyperlipidemia, unspecified; E87.6 Hypokalemia; R31.9 Hematuria, unspecified; K59.03 Drug induced constipation; T50.995A Adverse effect of other drugs, medicaments and biological substances, initial encounter; Y92.89 Other specified places as the place of occurrence of the external cause
CPT/HCPCS: 36415; 71045; 71260; 76705; 78306; 78445; 80048; 80053; 80305; 81001; 82140; 82150; 82374; 83036; 83605; 83690; 83735; 83880; 84100; 84439; 84443; 84484; 84703; 85025; 85610; 85730; 86886; 86900; 86901; 87040; 87081; 93005; 96374; 99285; A9503; A9510; C1887; C9113; J0330; J0690; J1100; J1170; J1885; J2001; J2175; J2250; J2270; J2405; J2543; J2704; J2710; J2765; J3010; J3480; J3490; J7030; J7042; J7060; Q0092; Q9967

== ENCOUNTER 2018-03-02 16:17 | Inpatient (IN) | payer MEDICAID ==
[~2018-03-02] VITALS: Ht 154.9 cm; Wt 81.6 kg
[~2018-03-02 16:17] MED LIST: ACET-8386 PO; DOCU-299 PO
[2018-03-02 16:19] VITALS: BP 108/47
--- NOTE | 2018-03-02 16:26 | NUR ---
PT AMBULATED TO ER BED 11
[2018-03-02] MEDS ORDERED: METOCLOPRAMIDE 10 MG/2 ML INJ VIAL IVP ONE (16:30)
[2018-03-02] MEDS ORDERED: MORPHINE SULFATE 4 MG/ML SYR IVP ONE (16:30)
[2018-03-02] MEDS ORDERED: NACL 0.9% 1,000 ML IV ONE (16:30)
--- NOTE | 2018-03-02 16:31 | NUR ---
42Y/F C/O RUQ ABDOMINAL PAIN W/ NAUSEA X 2 HOURS. PT IS 6 DAYS S/P-OP LAP/ERLIN.AAOX4 WITH EVEN AND STEADY GAIT; PATIENT STATES PAIN OF 10/10 AT THIS TIME; PATIENT POSITIONED FOR COMFORT; HOB ELEVATED; BEDRAILS UP X1; BED DOWN. ER MD MADE AWARE OF PT STATUS.
--- NOTE | 2018-03-02 17:00 | NUR ---
LAB AT BEDSIDE
[2018-03-02 17:15] LABS: BASOPHILS % (AUTO) 0.3 % (0.0-2.0); EOSINOPHILS # (AUTO) 0.1 K/uL (0-0.4); EOSINOPHILS % (AUTO) 0.6 % (0.0-4.0); HEMATOCRIT 38.9 % (36-48); HEMOGLOBIN 12.8 g/dL (12.0-16.0); MEAN CORPUSCULAR HEMOGLOBIN 29 pg (27-31); MEAN CORPUSCULAR HGB CONC 33 g/dL (33-37); MEAN CORPUSCULAR VOLUME 87.9 fL (80-94); MONOCYTES # (AUTO) 0.6 K/uL (0.8-1.0); MONOCYTES % (AUTO) 4.9 % (1.7-9.3); NEUTROPHILS # (AUTO) 9.8 K/uL (1.8-7.7); NEUTROPHILS % (AUTO) 85.2 % (42.2-75.2); PLATELET COUNT (AUTO) 290 K/uL (140-450); RED BLOOD CELL COUNT(AUTO) 4.42 MIL/uL (4.20-5.40); RED CELL DISTRIBUTION WIDTH 13.8 % (11.6-13.7); WHITE BLOOD COUNT (AUTO) 11.5 K/uL (4.8-10.8)
--- NOTE | 2018-03-02 17:15 | NUR ---
PT TAKEN TO CT
--- NOTE | 2018-03-02 17:33 | NUR ---
PT BACK FROM CT
[2018-03-02 17:38] LABS: ANION GAP 7.9 (8-16); CARBON DIOXIDE 29.5 mmol/L (21-32); CREATININE 0.8 mg/dL (0.6-1.3); POTASSIUM 3.4 mmol/L (3.5-5.1)
[2018-03-02 17:43] LABS: ALBUMIN 3.3 g/dL (3.4-5.0); TOTAL BILIRUBIN 0.6 mg/dL (0.0-1.0)
--- NOTE | 2018-03-02 18:18 | NUR ---
PT'S PHONE # JULIUS [phone]
[2018-03-02] MEDS ORDERED: DOCUSATE SODIUM 100 MG GELCAP PO PRN (19:15)
[2018-03-02] MEDS ORDERED: MORPHINE SULFATE 2 MG/ML SYR IVP PRN (19:15)
[2018-03-02] MEDS ORDERED: HYDROcodone/APAP 7.5/325 MG 1 TAB PO PRN (19:15)
[2018-03-02] MEDS ORDERED: ACETAMINOPHEN 325 MG TAB PO PRN (19:15)
[2018-03-02 19:25] LABS: APPEARANCE,URINE CLEAR (CLEAR); BILIRUBIN,URINE NEGATIVE (NEGATIVE); BLOOD, URINE 3+ (NEGATIVE); COLOR,URINE YELLOW (YELLOW); LEUKOCYTE ESTERASE ,URINE NEGATIVE (NEGATIVE); NITRITE, URINE NEGATIVE (NEGATIVE); UGLUCOSE NEGATIVE (NEGATIVE)
--- NOTE | 2018-03-02 19:25 | NUR ---
ADMITTED A 42F FROM ER. CAME BY BENLYNNE ACCOMPANIED BY FAMILY MEMBERS. AMBULATORY. AWAKE,ALERT AND ORIENTED X4. SERBIAN SPEAKING. CAME DUE TO UPPER ABDOMINAL PAIN WITH N/V. PAIN RADIATES TO THE LOWER BACK. AT HOME PT SAID SHE TAKES NORCO BUT LATELY IT DOESN'T HELP FOR THE PAIN. PT S/P LAP ERLIN 4 DAYS AGO, ABDOMEN STILL WITH INCISIONSX4 WITH BIG BAND AIDS DRESSING. DRESSING JUST CHANGED AT HOME TODAY. LAST BM WAS YESTERDAY. DENIES ANY DIARRHEA /CONSTIPATION. HAS HL ON THE RT AC #22,CLEAR AND PATENT. HOWE OF CARE DISCUSSED AND VERBALIZED UNDERSTANDING. BED PLACED IN LOWEST POSITION, CALL LIGHT WITHIN EASY REACH. ORIENTED TO HOSPITAL ROUTINES. WILL CONITNUE TO MONITOR.
--- NOTE | 2018-03-02 19:25 | NUR ---
Patient will be admitted to care of DR. MCGINNIS. Admited to TELE. Will go to room 120B. Belongings list completed. Report to MALICK JONES.
[2018-03-02] MEDS ORDERED: PROMETHAZINE 25 MG/ML VIAL IM SCH (19:30)
[2018-03-02 19:35] LABS: RBC,URINE 11-20 (MOD) /HPF (0-5); WBC,URINE 0-5 (RARE) /HPF (0-5)
[2018-03-02 19:40] LABS: PROTHROMBIN TIME 10.4 secs (10.8-13.4)
[2018-03-02 19:59] LABS: ALBUMIN 3.4 g/dL (3.4-5.0); CHOL/HDL RATIO 4.3 (1-4.5); FREE T4 (FREE THYROXINE) 1.45 ng/dL (0.76-1.46); PHOSPHORUS 3.2 mg/dL (2.5-4.9)
[2018-03-02 20:00] LABS: THYROID STIMULATING HORMONE 2.98 uIU/mL (0.34-3.74)
--- NOTE | 2018-03-02 20:00 | NUR ---
PT DENIES ANY NAUSEA. REFUSED THE PHENERGAN ORDERED AT THIS TIME.
--- NOTE | 2018-03-02 20:15 | NUR ---
ZAY WHITE,RESIDENT MD CAME TO ROOM AND CHECKED AND ASSESSED PT.
[2018-03-02] MEDS: NACL 0.9% 1,000 ML IV SCH (20:26)
[2018-03-02] MEDS ORDERED: DICYCLOMINE HCL LIQUID 20 MG, ALUMINUM HYD/MAG/SIMETHICONE 30 ML, LIDOCAINE VISCOUS 2% ... PO SCH ×3 (21:00)
--- NOTE | 2018-03-02 21:00 | NUR ---
EKG DONE AT BEDSIDE. NSR.
[2018-03-02 21:26] VITALS: BP 115/49
--- NOTE | 2018-03-02 22:30 | NUR ---
CXR DONE AT BEDSIDE. WILL FOLLOW UP RESULT.
[2018-03-02] MEDS ORDERED: ALUMINUM HYD/MAG/SIMETHICONE 30 ML UDC ONE (22:36)
[2018-03-02] MEDS ORDERED: LIDOCAINE VISCOUS 2% 20 ML UDC ONE (22:37)
[2018-03-03 00:42] VITALS: BP 123/58
--- NOTE | 2018-03-03 03:30 | NUR ---
PT AWAKE, WITH NO C/O ANY PAIN /DISCOMFORT NOTED. WILL CONTINUE TO MONITOR.
[2018-03-03 03:51] VITALS: BP 128/61
--- NOTE | 2018-03-03 06:00 | NUR ---
PT AWAKE. DENIES ANY ABDOMINAL PAIN AT THIS TIME.WILL CONITNUE TO MONITOR.
[2018-03-03 06:23] LABS: BASOPHILS % (AUTO) 0.4 % (0.0-2.0); EOSINOPHILS # (AUTO) 0.1 K/uL (0-0.4); EOSINOPHILS % (AUTO) 1.4 % (0.0-4.0); HEMATOCRIT 38.6 % (36-48); HEMOGLOBIN 12.8 g/dL (12.0-16.0); LYMPHOCYTES # (AUTO) 1.5 K/uL (2.5-16.5); LYMPHOCYTES % (AUTO) 20.6 % (20.5-51.1); MEAN CORPUSCULAR HEMOGLOBIN 29 pg (27-31); MEAN CORPUSCULAR HGB CONC 33 g/dL (33-37); MEAN CORPUSCULAR VOLUME 88.8 fL (80-94); MONOCYTES # (AUTO) 0.5 K/uL (0.8-1.0); MONOCYTES % (AUTO) 6.6 % (1.7-9.3); NEUTROPHILS # (AUTO) 5.1 K/uL (1.8-7.7); PLATELET COUNT (AUTO) 294 K/uL (140-450); RED BLOOD CELL COUNT(AUTO) 4.35 MIL/uL (4.20-5.40); RED CELL DISTRIBUTION WIDTH 13.4 % (11.6-13.7); WHITE BLOOD COUNT (AUTO) 7.1 K/uL (4.8-10.8)
[2018-03-03 06:37] LABS: ANION GAP 9.5 (8-16); CARBON DIOXIDE 27.1 mmol/L (21-32); CREATININE 0.7 mg/dL (0.6-1.3); POTASSIUM 3.6 mmol/L (3.5-5.1)
--- NOTE | 2018-03-03 07:25 | NUR ---
ENDORSED PT IN STABLE CONDITION TO AM NURSE.
--- NOTE | 2018-03-03 07:26 | NUR ---
RECEIVED REPORT FROM ELECTROMATIC TYPIST NURSE ROBERT AT BEDSIDE FOR CONTINUITY OF CARE. PT IS AWAKE AND ORIENTED X4. INTRODUCED SELF AND UPDATED BOARD. IV TO R AC 22G INTACT WITH NS @60ML/HR. SKIN WARM AND DRY. 4 ABD INCISIONS COVERED WITH BAND-AIDS. DRY AND INTACT. PT ON RA O2 SAT 98%. PT DENIES PAIN AT THIS TIME. NO N/V REPORTED. NO SIGNS OF DISTRESS. CALL LIGHT WITHIN REACH. BED IN LOW POSITION, WHEELS LOCKED. WILL CONTINUE TO MONITOR.
[2018-03-03 08:00] VITALS: BP 130/75
--- NOTE | 2018-03-03 09:23 | NUR ---
CHECKED ON PT IN ROOM. FAMILY MEMBER AT BEDSIDE. PT DENIES ABD PAIN, NAUSEA AND VOMITING. NO SIGNS OF DISTRESS. TOLD PT TO CALL IF NEEDING ANYTHING. VERBALIZED UNDERSTANDING. CALL LIGHT WITHIN REACH. WILL CONTINUE TO MONITOR.
[2018-03-03] MEDS: NACL 0.9% 1,000 ML IV SCH (11:43)
[2018-03-03] MEDS: PIPER/TAZO 3.375GM/D5W PREMIX 50 ML IV SCH ×2 (12:38→21:39)
--- NOTE | 2018-03-03 13:00 | NUR ---
PT SLEEPING WITH VISIBLE RESPIRATIONS. DENIES PAIN. CHECKED ABD INCISIONS. 4 SURGICAL INCISIONS WITH NOREEN S/P LAP ERLIN. CHANGED BAND AIDS. AND COVERED WITH ABD BINDER. NO REBOUND TENDERNESS. NO DRAINAGE OR ODOR NOTED. WILL CONTINUE TO MONITOR.
--- NOTE | 2018-03-03 15:25 | NUR ---
PT AWAKE AND AT BEDSIDE. NO NAUSEA OR ABD PAIN REPORTED. PT AMBULATED TO BATHROOM WITH STEADY GAIT. WILL CONTINUE TO MONITOR
[2018-03-03 16:00] VITALS: BP 129/63
--- NOTE | 2018-03-03 17:50 | NUR ---
CHECKED ON PT IN ROOM. TOLERATED CLEAR LIQUID DIET. PT DENIES NAUSEA OR VOMITING AFTER EATING. DENIES PAIN. PT'S IS AT BEDSIDE. NO SIGNS OF DISTRESS. CALL LIGHT WITHIN REACH. WILL CONTINUE TO MONITOR.
--- NOTE | 2018-03-03 19:28 | NUR ---
ENDORSED PT TO DRAFTER PATENT NURSE PRACHI AT BEDSIDE. PT IN STABLE CONDITION.
[2018-03-04] VITALS: BP 114/50
[2018-03-04] MEDS: NACL 0.9% 1,000 ML IV SCH (05:01)
[2018-03-04] MEDS: PIPER/TAZO 3.375GM/D5W PREMIX 50 ML IV SCH ×3 (05:02→20:54)
[2018-03-04 06:37] LABS: BASOPHILS % (AUTO) 0.4 % (0.0-2.0); EOSINOPHILS # (AUTO) 0.2 K/uL (0-0.4); EOSINOPHILS % (AUTO) 2.8 % (0.0-4.0); HEMATOCRIT 38.3 % (36-48); HEMOGLOBIN 12.5 g/dL (12.0-16.0); LYMPHOCYTES # (AUTO) 1.5 K/uL (2.5-16.5); MEAN CORPUSCULAR HEMOGLOBIN 29 pg (27-31); MEAN CORPUSCULAR HGB CONC 33 g/dL (33-37); MONOCYTES # (AUTO) 0.5 K/uL (0.8-1.0); MONOCYTES % (AUTO) 6.8 % (1.7-9.3); PLATELET COUNT (AUTO) 277 K/uL (140-450); RED CELL DISTRIBUTION WIDTH 13.3 % (11.6-13.7); WHITE BLOOD COUNT (AUTO) 7.2 K/uL (4.8-10.8)
[2018-03-04 07:16] LABS: ALBUMIN 2.9 g/dL (3.4-5.0); ANION GAP 12.2 (8-16); CARBON DIOXIDE 26.8 mmol/L (21-32); CREATININE 0.7 mg/dL (0.6-1.3); MAGNESIUM 2.1 mg/dL (1.8-2.4); PHOSPHORUS 2.5 mg/dL (2.5-4.9); TOTAL BILIRUBIN 0.3 mg/dL (0.0-1.0)
--- NOTE | 2018-03-04 07:20 | NUR ---
[facility]
[2018-03-04 08:00] VITALS: BP 110/64
--- NOTE | 2018-03-04 08:00 | NUR ---
PATIENT AWAKE, ALERT. RESPIRATION EVEN, UNLABOR ON ROOM AIR. SKIN DRY AND WARM. LUNGS SOUND CLEAR THROUGHOUT. BOWELS SOUND ACTIVE 4 QUADRANTS. DRESSING DRY AND INTACT. REGULAR CARDIAC RHYTHM. DENIED PAIN AT THIS TIME. PLAN OF CARE WAS DISCUSSED WITH PATIENT. BED AT LOW POSITION, SIDE RAILS UP. CALL LIGHT WITHIN REACH
[2018-03-04 08:28] LABS: T4 (THYROXINE) 10.2 ug/dL (4.5-12.0)
--- NOTE | 2018-03-04 08:37 | NUR ---
PATIENT HAS BEEN SCREENED AND CATEGORIZED MODERATE NUTRITION RISK. PATIENT WILL BE SEEN WITHIN 3-5 DAYS OF ADMISSION. 03/05/18 03/07/[address]
--- NOTE | 2018-03-04 11:24 | NUR ---
PATIENT AWAKE, ALERT. RESPIRATION EVEN, UNLABOR ON ROOM AIR. NO DISTRESS NOTED AT THIS TIME. FAMILY AT BEDSIDE. CALL LIGHT WITHIN REACH
--- NOTE | 2018-03-04 13:00 | NUR ---
ERCP PROCEDURE CONSENT WAS OBTAINED AT BEDSIDE. PATIENT VERBALIZED UNDERSTANDING OF RISKS AND BENEFITS. MD WAS AT BEDSIDE
--- NOTE | 2018-03-04 14:46 | NUR ---
PATIENT AWAKE, ALERT. RESPIRATION EVEN, UNLABOR ON ROOM AIR. FAMILY AT BEDSIDE. NO DISTRESS NOTED AT THIS TIME
[2018-03-04 16:00] VITALS: BP 109/70
--- NOTE | 2018-03-04 16:30 | NUR ---
PATIENT AWAKE, ALERT. RESPIRATION EVEN, UNLABOR ON ROOM AIR. DENIED PAIN, SOB AT THIS TIME. NO DISTRESS NOTED. FAMILY AT BEDSIDE. CALL LIGHT WITHIN REACH
--- NOTE | 2018-03-04 19:32 | NUR ---
ENDORSEMENT GIVEN TO THE COAL WEIGHER NURSE. PATIENT IS STABLE AT THIS TIME
[2018-03-05 00:28] VITALS: BP 107/43
[2018-03-05] MEDS: NACL 0.9% 1,000 ML IV SCH (01:32)
[2018-03-05] MEDS: PIPER/TAZO 3.375GM/D5W PREMIX 50 ML IV SCH ×2 (04:17→12:19)
[2018-03-05 06:59] LABS: BASOPHILS % (AUTO) 0.3 % (0.0-2.0); EOSINOPHILS # (AUTO) 0.2 K/uL (0-0.4); EOSINOPHILS % (AUTO) 2.5 % (0.0-4.0); HEMATOCRIT 37.4 % (36-48); HEMOGLOBIN 12.7 g/dL (12.0-16.0); LYMPHOCYTES # (AUTO) 1.8 K/uL (2.5-16.5); LYMPHOCYTES % (AUTO) 23.5 % (20.5-51.1); MEAN CORPUSCULAR HEMOGLOBIN 30 pg (27-31); MEAN CORPUSCULAR HGB CONC 34 g/dL (33-37); MEAN CORPUSCULAR VOLUME 88.1 fL (80-94); MONOCYTES # (AUTO) 0.5 K/uL (0.8-1.0); MONOCYTES % (AUTO) 6.6 % (1.7-9.3); NEUTROPHILS # (AUTO) 5.1 K/uL (1.8-7.7); NEUTROPHILS % (AUTO) 67.1 % (42.2-75.2); PLATELET COUNT (AUTO) 290 K/uL (140-450); RED BLOOD CELL COUNT(AUTO) 4.24 MIL/uL (4.20-5.40); RED CELL DISTRIBUTION WIDTH 13.3 % (11.6-13.7); WHITE BLOOD COUNT (AUTO) 7.6 K/uL (4.8-10.8)
[2018-03-05 07:29] LABS: ANION GAP 12.6 (8-16); CARBON DIOXIDE 25.8 mmol/L (21-32); CREATININE 0.8 mg/dL (0.6-1.3); MAGNESIUM 2.1 mg/dL (1.8-2.4); PHOSPHORUS 2.9 mg/dL (2.5-4.9); POTASSIUM 3.4 mmol/L (3.5-5.1); TOTAL BILIRUBIN 0.5 mg/dL (0.0-1.0)
--- NOTE | 2018-03-05 07:30 | NUR ---
RECEIVED PT REPORT FROM [employer] RN AT BEDSIDE. PT IS SLEEPING, EASILY AROUSED. OX4. NO S/S OF ACUTE DISTRESS. LUNG SOUNDS ARE CLEAR. BOWELS SOUND ACTIVE. S/P LAP ERLIN 1 WEEK, 4 INCISION COVERED WITH BANDAGE. DRESSING DRY AND INTACT. IV NOTED TO THE RIGHT HAND 22G, PATENT, INTACT AND ASYMPTOMATIC. DENIED PAIN AT THIS TIME. PLAN OF CARE WAS DISCUSSED WITH PATIENT. BED IN LOWEST POSITION. CALL LIGHT WITHIN REACH, WILL CONTINUE TO MONITOR.
--- NOTE | 2018-03-05 07:33 | NUR ---
GAVE REPORT TO DAYSHIFT NURSE FOR CONTINUITY OF CARE.
[2018-03-05 08:00] VITALS: BP 110/43
--- NOTE | 2018-03-05 09:05 | NUR ---
PT IS TAKEN TO HIDA SCAN.
--- NOTE | 2018-03-05 10:30 | NUR ---
PT IS BACK TO ROOM. CONNECTED PT TO IVF.
--- NOTE | 2018-03-05 15:50 | NUR ---
PT IS SITTING UP AND EATING SANDWICHES. DENIES PAIN AND NAUSEA AT THIS TIME.
[2018-03-05 16:00] VITALS: BP 127/68
--- NOTE | 2018-03-05 16:14 | NUR ---
03/05/18 RD INITIAL ASSESSMENT COMPLETED PLEASE REFER TO NUTRITION ASSESSMENT UNDER CARE ACTIVITY FOR ESTIMATED NUTRITIONAL NEEDS. 1. CONTINUE NPO STATUS MEDICALLY APPROPRIATE 2. IF/WHEN MEDICALLY APPROPRIATE TO ADVANCE DIET, CONSIDER BRAT DIET. 3. PROVIDED NUTRITION EDUCATION FOR LOW FAT DIET 4. RD TO FOLLOW-UP 3-5 DAYS, MODERATE RISK NATE NAVARRETE RD
--- NOTE | 2018-03-05 18:50 | NUR ---
PT FINISHED DINNER. DENIES ANY PAIN, NAUSEA AND VOMITING. NO S/S OF ACUTE DISTRESS. PIC TAKEN FOR THE LAP ERLIN INCISIONS. REAPPLIED ABD BINDER.
--- NOTE | 2018-03-05 19:00 | NUR ---
PT DISCHARGED PER MD ORDER. MADE PT AND HER AWARE OF THE FOLLOW UP APPTS WITH DR WOLFE AND DR JEREMIAH LOVE FOR PT. DISCHARGE AND MEDICATION TEACHING PROVIDED. PT VERBALIZED UNDERSTANDING. IV DC'D, TIP INTACT, PRESSURE APPLIED. PT LEFT WITH ALL HER BELONGING AND IN STABLE CONDITION.
== END 2018-03-05 19:00 | disposition home or self-care (01) ==
LOC: MED 16:17 → MTU 18:42
PROVIDERS: ADMIT General Practice; ATTEND General Practice
DX: K80.50 Calculus of bile duct without cholangitis or cholecystitis without obstruction (principal); K85.90 Acute pancreatitis without necrosis or infection, unspecified; E44.1 Mild protein-calorie malnutrition; E87.6 Hypokalemia; E66.9 Obesity, unspecified; Z68.34 Body mass index [BMI] 34.0-34.9, adult; Z90.49 Acquired absence of other specified parts of digestive tract
CPT/HCPCS: 36415; 71045; 78445; 80048; 80053; 81001; 82040; 82150; 83036; 83605; 83690; 83735; 83880; 84100; 84436; 84439; 84443; 84479; 85025; 85610; 85730; 87040; 87081; 93005; 96374; 96375; 99285; J2270; J2543; J2765; J7030; Q0092

== ENCOUNTER 2021-01-03 10:31 | Emergency (ER) | payer MEDICAID ==
[~2021-01-03] VITALS: Ht 157.5 cm; Wt 80.7 kg
[2021-01-03 10:47] VITALS: BP 147/89
--- NOTE | 2021-01-03 11:03 | NUR ---
PATIENT AMBULATED TO BED 03 WITH STEADY GAIT
--- NOTE | 2021-01-03 11:04 | NUR ---
45F c/c laceration on the right thumb after cutting her finger on glass while washing dishes. 10/10 sharp pain, no tendon, muscle or bone noted. CMS+, <3sec cap refill. PMH: Leann HILL
--- NOTE | 2021-01-03 11:15 | NUR ---
ERMD at bedside.
[2021-01-03] MEDS ORDERED: LIDOCAINE MPF 1% 10 MG/ML VIAL INJ ONE (11:20)
[2021-01-03] MEDS ORDERED: NAPR-54 PO (12:06)
[2021-01-03 12:22] VITALS: BP 147/89
== END 2021-01-03 12:22 | disposition home or self-care (01) ==
LOC: MED 10:31
DX: S61.012A Laceration without foreign body of left thumb without damage to nail, initial encounter (principal); Z79.899 Other long term (current) drug therapy; Z90.49 Acquired absence of other specified parts of digestive tract; W25.XXXA Contact with sharp glass, initial encounter; Y93.G1 Activity, food preparation and clean up; Y92.89 Other specified places as the place of occurrence of the external cause; Y99.8 Other external cause status
CPT/HCPCS: 12001; 90471; 90715; 99283; J2001